=== PATIENT | female | born 1945 | race Caucasian/White ===

== ENCOUNTER 2019-08-08 13:21 | Inpatient (IN) | payer MEDICARE ==
[~2019-08-08] VITALS: Ht 165.1 cm; Wt 88.0 kg
[2019-08-08 14:05] LABS: Basophils # (auto) 0 uL; Basophils % (auto) 0.2 % (0.0-2.0); Eosinophils # (auto) 0 uL; Hematocrit 44.4 % (36.0-46.0); Hemoglobin 14.8 g/dL (12.2-16.2); Lymphocytes # (auto) 0.8 uL; Mean Corpuscular Hemoglobin 31.3 pg (28.0-32.0); Mean Corpuscular Hgb Conc. 33.3 g/dL (32.0-36.0); Mean Corpuscular Volume 93.9 fL (80.0-100.0); Monocytes # (auto) 1.1 uL; Monocytes % (auto) 5.8 % (0.0-12.0); Neutrophils # (auto) 17.5 uL; Platelet Count (auto) 261 10^3/uL (140-450); Red Blood Cells 4.72 10^6/uL (4.0-5.20); White Blood Cell 19.5 10^3/uL (4.4-10.8)
[2019-08-08] MEDS ORDERED: PIPERACILLIN-TAZOB 3.375GM 100 ML IV ONE (14:15)
[2019-08-08 14:18] LABS: Albumin 3.7 g/dL (3.4-5.0); BUN/Creatinine Ratio 11.9; Calcium 8.5 mg/dL (8.5-10.1); Potassium 3.5 mmol/L (3.5-5.1)
[2019-08-08 14:21] LABS: Bilirubin, Total 2.2 mg/dL (0.2-1.0); Total Protein 6.8 g/dL (6.4-8.2)
[2019-08-08 14:57] LABS: Lactic Acid w/Reflex 4.6 mmol/L (0.4-2.0)
[2019-08-08] MEDS ORDERED: SODIUM CHLORIDE 0.9% 1,000 ML IV SCH (15:00)
[2019-08-08 15:37] LABS: Bilirubin, Direct 1.1 mg/dL (0-0.2)
[2019-08-08] MEDS ORDERED: MORPHINE SULF INJ 2 MG/ML SYRINGE 1ML IV PRN ×2 (16:00)
[2019-08-08] MEDS ORDERED: NITROGLYCERIN 0.4 MG SL TAB SL PRN (16:00)
[2019-08-08] MEDS ORDERED: LORazepam 2MG/ML-1ML VIAL IV PRN (16:00)
[2019-08-08] MEDS ORDERED: ONDANSETRON HCL 4 MG/2 ML VIAL IV PRN (16:00)
[2019-08-08] MEDS ORDERED: SODIUM CHLORIDE 0.9% 1,000 ML IV ONE (16:15)
[2019-08-08] MEDS ORDERED: BENZOCAINE (DENTAL) 20 % SPRAY 60ML MT ONE (16:45)
[2019-08-08] MEDS ORDERED: HYDROmorphone HCL 2 MG/ML VL ONE (17:52)
[2019-08-08] MEDS: HYDROmorphone HCL 2 MG/ML VL IV PRN (18:11)
[2019-08-08 18:30] VITALS: BP 114/59
--- NOTE | 2019-08-08 18:30 | NUR ---
Telemetry admit from ER Report received from ED. Patient oriented to RN, room, call light. Patient is on continuous telemetry monitoring. No c/o pain at this time. NG tube was placed in Left Nare per order. CXR was ordered STAT to verify placement prior to being hooked up to suction. Patient is NPO but was given mouth swabs. Patient is alert and oriented. Denies needing anything at this time.
[2019-08-08] MEDS ORDERED: ESCI10TA PO (19:05)
[2019-08-08] MEDS ORDERED: ETAN50IN5 SC (19:05)
[2019-08-08] MEDS ORDERED: CHOL20007 OR (19:05)
[2019-08-08] MEDS ORDERED: CELE200C PO (19:05)
--- NOTE | 2019-08-08 19:20 | NUR ---
Opening Shift Note Assumed care of patient, AOx4. No S/S of distress/SOB or pain. Fall and safety precautions in place. Instructed on plan of care and to call for assist PRN, will continue to monitor for changes Q1hr and PRN.
[2019-08-08] MEDS: PIPERACILLIN-TAZOB 3.375GM 100 ML IV SCH (19:57)
--- NOTE | 2019-08-08 20:00 | NUR ---
NG Advancement Per chest xray result, "advancement by 10cm recommended". Advanced NG to 45cm and secured. Patient tolerated well. Connected to low continuous suction, per MD order. Will continue to monitor.
[2019-08-08] MEDS: FAMOTIDINE (10MG/ML) 2ML VL IV SCH (21:41)
[2019-08-08 22:00] VITALS: BP 104/54
--- NOTE | 2019-08-08 22:00 | NUR ---
Temp Pt oral temp 99.6. Cooling measures initiated. Patient was educated. Verbalized understanding and agreement. Will recheck approx 1 hour.
--- NOTE | 2019-08-08 23:00 | NUR ---
Temp Recheck Oral temp 98.6. Will continue to monitor.
--- NOTE | 2019-08-08 23:20 | NUR ---
UA sent Urinalysis obtained and sent to lab via bullet.
[2019-08-08 23:37] LABS: Urine Bacteria NONE SEEN /hpf (None Seen); Urine Blood Negative /uL (Negative); Urine Specific Gravity 1.013 (1.001-1.035); Urine WBC 1 /hpf (0 - 5)
[2019-08-09] MEDS: D5W/ SOD CHL 0.9%/KCL 20MEQ 1,000 ML IV SCH ×3 (00:15→16:15)
[2019-08-09] MEDS: PIPERACILLIN-TAZOB 3.375GM 100 ML IV SCH ×2 (01:40→09:10)
[2019-08-09] MEDS: HYDROmorphone HCL 2 MG/ML VL IV PRN ×4 (01:48→21:06)
--- NOTE | 2019-08-09 04:27 | NUR ---
Temp Pt oral temp 100.6. Cooling measures initiated. Patient was educated. Verbalized understanding and agreement. Will recheck approx 1 hour.
[2019-08-09 05:00] VITALS: BP 105/49
--- NOTE | 2019-08-09 05:27 | NUR ---
Temp Recheck Oral temp 98.3. Will continue to monitor.
[2019-08-09 06:45] LABS: Basophils # (auto) 0.1 uL; Basophils % (auto) 0.5 % (0.0-2.0); Eosinophils # (auto) 0 uL; Eosinophils % (auto) 0.1 % (0.0-7.0); Hematocrit 38.3 % (36.0-46.0); Hemoglobin 12.9 g/dL (12.2-16.2); Lymphocytes # (auto) 1.1 uL; Lymphocytes % (auto) 6.6 % (10.0-50.0); Mean Corpuscular Hemoglobin 31.3 pg (28.0-32.0); Mean Corpuscular Hgb Conc. 33.6 g/dL (32.0-36.0); Mean Corpuscular Volume 93.2 fL (80.0-100.0); Monocytes % (auto) 6.1 % (0.0-12.0); Neutrophils # (auto) 14.4 uL; Neutrophils % (auto) 86.7 % (37.0-80.0); Nucleated Red Blood Cells % 0.1 %; Platelet Count (auto) 238 10^3/uL (140-450); Red Blood Cells 4.11 10^6/uL (4.0-5.20); Red Cell Distribution Width 13.2 % (11.8-14.3); White Blood Cell 16.6 10^3/uL (4.4-10.8)
[2019-08-09 07:01] LABS: INR 1.12 (0.9-1.15); Partial Thromboplastin Time 27.6 sec (23.64-32.05)
[2019-08-09 07:06] LABS: Albumin 2.9 g/dL (3.4-5.0); BUN/Creatinine Ratio 17.2; Calcium 7.5 mg/dL (8.5-10.1)
[2019-08-09 07:23] LABS: Bilirubin, Total 2.3 mg/dL (0.2-1.0)
[2019-08-09 07:24] LABS: Total Protein 5.8 g/dL (6.4-8.2)
--- NOTE | 2019-08-09 08:00 | NUR ---
morning notes Assumed care of patient resting with eyes closed. Respirations are even and non labored, no s/s of distress noted. Bed in lowest position, breaks locked, side rails up x2, call light with in reach. Will continue to monitor q1hr and PRN.
[2019-08-09 09:00] VITALS: BP 114/49
[2019-08-09] MEDS: FAMOTIDINE (10MG/ML) 2ML VL IV SCH ×2 (09:10→21:07)
[2019-08-09 13:00] VITALS: BP 117/57
[2019-08-09] MEDS: metroNIDAZOLE 500MG/100ML 100 ML IV SCH ×2 (15:59→21:07)
--- NOTE | 2019-08-09 16:44 | NUR ---
PATIENT TEMP 102 COOLING MEASURES STARTED, WILL NOTIFY
--- NOTE | 2019-08-09 16:44 | NUR ---
DOCTOR NAREN PAGED.REGARDING PATIENT TEMPERATURE. AWAITING CALL BACK.
[2019-08-09 17:00] VITALS: BP 110/55
--- NOTE | 2019-08-09 17:00 | NUR ---
RECEIVED CALL BACK FROM DOCTOR SNEED. NEW ORDERS RECEIVED, SEE EMAR FOR ORDERS.
--- NOTE | 2019-08-09 17:10 | NUR ---
Came into patients room. Patient had pulled out IV x2 . Was trying to pull out NG tube ROMEO Stout paged.
--- NOTE | 2019-08-09 17:10 | NUR ---
Came into patient room, patient appeared confused, patient pulled out IV x2, Patient stated "they weren't working right" and was attempting to pull out NG tube. V/S taken blood pressure 119/58 temp 99.7, heart rate 91,respirations 20, O2 sat 89% on room air. Paged out to ROMEO Stout.
--- NOTE | 2019-08-09 17:10 | NUR ---
Reassessed temp 99.7.
[2019-08-09] MEDS ORDERED: ACETAMINOPHEN 500 MG TAB PO PRN (17:15)
--- NOTE | 2019-08-09 17:30 | NUR ---
RECEIVED CALL BACK FROM ROMEO TELLO. NEW ORDERS RECEIVED, SEE EMAR FOR ORDERS.
--- NOTE | 2019-08-09 18:45 | NUR ---
Rounding Patient awake and alert AOX4. Asked if patient remembered pulling out IVs patient stated she doesn't remember. Patient placed in room with sitter. Will continue to monitor Q1 hour and PRN.
--- NOTE | 2019-08-09 19:25 | NUR ---
Opening Shift Note Assumed care of patient, AOx4. No S/S of distress/SOB or pain. Fall and safety precautions in place. Call light is within reach. Instructed on POC and to call for assist PRN, will continue to monitor for changes Q1hr and PRN.
--- NOTE | 2019-08-09 20:30 | NUR ---
Temp 99.5 oral temp. Cooling measures initiated. Educated patient on reason for cooling measures, verbalized understanding and agreement. Will recheck approximately one hour.
--- NOTE | 2019-08-09 20:40 | NUR ---
IV insertion IV access obtained, via clean sterile technique by inserting 20 gauge catheter at right forearm after 2 attempts. IV secured properly. No trauma to site. Patient tolerated well.
--- NOTE | 2019-08-09 21:00 | NUR ---
NG Upon entering room, ng tube was noted to be at 35cm. Attempted to confirm placement using auscultation technique, unable to confirm. With assist from charge accounts audit clerk, NG was advanced to 61cm and placement was confirmed with auscultation as verified by primary RN, secondary RN, and charge accounts audit clerk. Patient tolerated procedure well. NG tube connected to LCS as ordered. Will continue to monitor.
--- NOTE | 2019-08-09 21:30 | NUR ---
Temp Recheck 98.2 oral temp. Will continue to monitor.
[2019-08-09 22:00] VITALS: BP 108/42
[2019-08-10] MEDS: D5W/ SOD CHL 0.9%/KCL 20MEQ 1,000 ML IV SCH ×3 (00:15→14:16)
[2019-08-10 05:00] VITALS: BP 122/56
[2019-08-10 05:13] LABS: Basophils # (auto) 0 uL; Basophils % (auto) 0.1 % (0.0-2.0); Eosinophils # (auto) 0.1 uL; Eosinophils % (auto) 0.6 % (0.0-7.0); Hematocrit 34.4 % (36.0-46.0); Hemoglobin 11.7 g/dL (12.2-16.2); Lymphocytes # (auto) 1.3 uL; Lymphocytes % (auto) 8.7 % (10.0-50.0); Mean Corpuscular Hemoglobin 31.5 pg (28.0-32.0); Mean Corpuscular Hgb Conc. 33.9 g/dL (32.0-36.0); Mean Corpuscular Volume 92.8 fL (80.0-100.0); Monocytes # (auto) 1.2 uL; Monocytes % (auto) 7.9 % (0.0-12.0); Neutrophils # (auto) 12.2 uL; Neutrophils % (auto) 82.7 % (37.0-80.0); Platelet Count (auto) 187 10^3/uL (140-450); Red Blood Cells 3.71 10^6/uL (4.0-5.20); Red Cell Distribution Width 13.4 % (11.8-14.3); White Blood Cell 14.8 10^3/uL (4.4-10.8)
[2019-08-10 05:33] LABS: Albumin 2.6 g/dL (3.4-5.0); Calcium 7.6 mg/dL (8.5-10.1); Potassium 3.6 mmol/L (3.5-5.1)
[2019-08-10 05:38] LABS: BUN/Creatinine Ratio 16.9; Bilirubin, Total 1.6 mg/dL (0.2-1.0); Total Protein 5.7 g/dL (6.4-8.2)
[2019-08-10] MEDS: metroNIDAZOLE 500MG/100ML 100 ML IV SCH ×3 (06:03→21:21)
--- NOTE | 2019-08-10 07:55 | NUR ---
morning notes Assumed care of patient resting with eyes closed. Respirations are even and non labored, no s/s of distress noted. NG tube in place and connected to suction as ordered. Bed in lowest position, breaks locked, side rails up x2, call light with in reach. Will continue to monitor q1hr and PRN.
[2019-08-10] MEDS: FAMOTIDINE (10MG/ML) 2ML VL IV SCH ×2 (08:55→21:21)
[2019-08-10] MEDS: HYDROmorphone HCL 2 MG/ML VL IV PRN (08:56)
[2019-08-10] MEDS: cefTRIAXone 1GM/50ML D5W 50 ML IV SCH (08:57)
[2019-08-10 09:00] VITALS: BP 124/62
--- NOTE | 2019-08-10 11:30 | NUR ---
NG tube D/C per doctors orders. Patient tolerated well.
[2019-08-10 13:00] VITALS: BP 133/51
[2019-08-10 17:00] VITALS: BP 126/56
--- NOTE | 2019-08-10 19:20 | NUR ---
Opening Shift Note Assumed care of patient, awake and alert. No S/S of distress/SOB or pain. Call light within reach. Fall and safety precautions initiated. Instructed on POC and to call for assist PRN, will continue to monitor for changes Q1hr and PRN.
[2019-08-10 21:30] VITALS: BP 130/60
[2019-08-11] MEDS: D5W/ SOD CHL 0.9%/KCL 20MEQ 1,000 ML IV SCH ×2 (00:15→03:49)
[2019-08-11] MEDS: HYDROmorphone HCL 2 MG/ML VL IV PRN (03:49)
[2019-08-11 05:00] VITALS: BP 129/61
[2019-08-11] MEDS: metroNIDAZOLE 500MG/100ML 100 ML IV SCH ×3 (05:39→21:06)
[2019-08-11 06:19] LABS: Basophils # (auto) 0 uL; Basophils % (auto) 0.2 % (0.0-2.0); Eosinophils # (auto) 0.3 uL; Eosinophils % (auto) 2.5 % (0.0-7.0); Hematocrit 32.8 % (36.0-46.0); Hemoglobin 11.2 g/dL (12.2-16.2); Lymphocytes # (auto) 1.2 uL; Mean Corpuscular Hemoglobin 31.5 pg (28.0-32.0); Mean Corpuscular Hgb Conc. 34.1 g/dL (32.0-36.0); Mean Corpuscular Volume 92.2 fL (80.0-100.0); Monocytes # (auto) 0.9 uL; Monocytes % (auto) 8.1 % (0.0-12.0); Neutrophils # (auto) 9.2 uL; Neutrophils % (auto) 79.2 % (37.0-80.0); Platelet Count (auto) 208 10^3/uL (140-450); Red Blood Cells 3.56 10^6/uL (4.0-5.20); Red Cell Distribution Width 12.8 % (11.8-14.3); White Blood Cell 11.7 10^3/uL (4.4-10.8)
[2019-08-11 06:36] LABS: Albumin 2.4 g/dL (3.4-5.0); Calcium 7.5 mg/dL (8.5-10.1); Potassium 3.5 mmol/L (3.5-5.1)
[2019-08-11 06:39] LABS: BUN/Creatinine Ratio 11.1; Bilirubin, Total 0.9 mg/dL (0.2-1.0); Total Protein 5.7 g/dL (6.4-8.2)
--- NOTE | 2019-08-11 08:00 | NUR ---
RECEIVED PATIENT ALERT AND ORIENTED X4, NOT IN DISTRESS, WHEEZING LS IN BILATERAL UPPER AND CLEAR LOWER LS, RR=18 SAT=96% IN RA, HEAR R=80, DENIED SOB AND CHEST PAIN, ABDOMEN SOFT WITH ACTIVE BS, TOLERATED 100% OF CLEAR LIQUID DIET BREAKFAST TRAY, LAST BM THIS MORNING REPORTED, SKIN INTACT WARM TO TOUCH, RADIAL AND PEDAL PULSES PALPABLE AND STRONG, NO EDEMA OR SKIN BREAK NOTED, RESTING ON BED, HEAD OF BED ELEVATED, BED ON LOW POSITION, RAILS UP X2, CALL LIGHT ON REACH, WILL CONTINUE MONITORING.
[2019-08-11] MEDS: cefTRIAXone 1GM/50ML D5W 50 ML IV SCH (08:39)
[2019-08-11] MEDS: FAMOTIDINE (10MG/ML) 2ML VL IV SCH (08:39)
[2019-08-11 09:00] VITALS: BP 126/85
[2019-08-11] MEDS: HYDROcodone-ACET 5/325MG TAB PO PRN ×2 (12:06→23:53)
[2019-08-11 13:00] VITALS: BP 123/56
--- NOTE | 2019-08-11 13:30 | NUR ---
REFUSED FULL LIQUID DIET, TOLERATED CLEAR LIQUID WELL, NOT IN DISTRESS, DENIED PAIN, VISITOR AT THE BED SIDE.
--- NOTE | 2019-08-11 16:30 | NUR ---
assessment Patient is a 73 year old female who is alert and oriented. Patients cognitive abilities are intact. Prior to admission patient lived home alone and functioned independently. Patient informed me she is able to care for her own ADLs. Per patient she will return home to her prior living arrangements post discharge and her brother Saurabh will transport her home and will stay with patient on discharge. Patients PCP is Dr Yeager in [place]. Patient informed me she will charge her PCP and Insurance to this area on discharge. Patient feels safe returning home on discharge. I informed patient she has a right to speak to a social sciences lecturer regarding all care. I informed patient she has a right to participate in any and all discharge planning. Patient has a POA and advanced directive. Patient verbalized understanding and agreed to discharge plan home. Addendum: 08/11/19 at 1632 by Maricel SHAFFER Amended: Links added.
[2019-08-11 17:00] VITALS: BP 122/69
--- NOTE | 2019-08-11 19:00 | NUR ---
OPENING NOTE Received report from day shift RN. Patient is A&O X's 4 with no s/s of distress and reports no pain. Educated patient on POC and to use call light when in need of assistance. Patient verbalized understanding. Bed is in lowest/locked position with side rails up X's 2 and call light is within reach of patient. Will continue care.
[2019-08-11 21:30] VITALS: BP 100/57
[2019-08-12 05:00] VITALS: BP 132/65
[2019-08-12] MEDS: metroNIDAZOLE 500MG/100ML 100 ML IV SCH ×2 (06:00→13:12)
--- NOTE | 2019-08-12 08:00 | NUR ---
Received patient alert and oriented x4, not in distress, clear lung sounds in bilateral upper and lower lung lobes, RR=18, deep breathing and coughing encouraged, demonstrated well, SR R=68 on Tele monitor, denied SOB and chest pain or discomfort, abdomen soft with active BS, tolerating full liquid diet well, last BM 08/11/19 as reported, out of bed and ambulated around the unit x3, tolerated well, resting on bed, denied pain, head of bed elevated, bed on low position, rails up x2, call light on reach, will continue monitoring.
[2019-08-12 09:00] VITALS: BP 123/59
[2019-08-12] MEDS: cefTRIAXone 1GM/50ML D5W 50 ML IV SCH (09:42)
[2019-08-12] MEDS ORDERED: PANTOPRAZOLE 40 MG TAB PO SCH (10:00)
[2019-08-12] MEDS ORDERED: PANT40T PO (10:19)
--- NOTE | 2019-08-12 10:49 | NUR ---
PENDING D/C, VISITOR AT BED SIDE, NOT IN DISTRESS, DENIED PAIN, WILL CONTINUE MONITORING.
--- NOTE | 2019-08-12 15:41 | NUR ---
D/C INSTRUCTIONS AND FOLLOW UP PCP INFORMATION WERE GIVEN, VERBALIZED UNDERSTANDING, FOLLOW UP ARRANGEMENT WILL BE DONE BY CALLING FROM HOME REPORTED, PCP IS IN [facility] REPORTED, D/C IV SITE, TOLERATED WELL, VS T=97.7 RR=18 SAT=96% P=92 PA=417/62, NOT IN DISTRESS, DENIED PAIN, WC PROVIDED, D/C HOME WALKING ACCOMPANIED BY BROTHER, TOOK ALL BELONGINGS AND LEFT NOTHING BEHIND.
== END 2019-08-12 15:40 | disposition home or self-care (01) | DRG 439 ==
LOC: ER 13:21 → EDBD 13:21 → OVERFLOW 13:22 → CENTRAL 18:36 → TELE-CENTR 08-10 05:37 → CENTRAL 08-10 15:17
PROVIDERS: ADMIT Nurse Practitioner Acute Care; ATTEND Internal Medicine
DX: K85.10 Biliary acute pancreatitis without necrosis or infection (principal); R65.10 Systemic inflammatory response syndrome (SIRS) of non-infectious origin without acute organ dysfunction; E66.9 Obesity, unspecified; K42.9 Umbilical hernia without obstruction or gangrene; K43.9 Ventral hernia without obstruction or gangrene; K57.10 Diverticulosis of small intestine without perforation or abscess without bleeding; K76.0 Fatty (change of) liver, not elsewhere classified; M06.9 Rheumatoid arthritis, unspecified; R41.0 Disorientation, unspecified; M19.90 Unspecified osteoarthritis, unspecified site; Z88.2 Allergy status to sulfonamides; Z68.32 Body mass index [BMI] 32.0-32.9, adult
CPT/HCPCS: 36415; 70450; 71045; 74176; 74181; 76705; 80053; 80061; 81001; 82150; 82248; 83605; 83690; 84443; 85025; 85610; 85730; 87040; 93005; 93306; 96365; 96375; 99291; G0378; J0696; J2405; J2543; J3490